=== PATIENT | male | born 1965 | race Caucasian/White ===

== ENCOUNTER 2019-02-20 14:08 | Emergency (ER) | payer BC ==
--- NOTE | 2019-02-20 14:20 | ED Physician Documentation ---
PD HPI URI - Stated complaint Stated Complaint: COUGH/SOA - Chief complaint Chief Complaint: General - History obtained from History obtained from: Patient - History of Present Illness Timing - onset: How many days ago (10-14) Timing duration: Days (10-14) Timing details: Abrupt onset (He was working out in the sun with some strenuous activity about 10 to 14 days ago and noticed onset of fatigue and shortness of breath. He did not have chest pain per se. He is continued with general fatigue and dyspnea on exertion with some cough over the last 10 to 14 days since that time. He states he has not slept well either with some trouble breathing at night and some coughing. He denied chest pain per se. He thought he just needed to rest and relax and so did have a few days off work but [place] Still present Associated symptoms: Productive cough (mildly productive with clear to white sputum), Dyspnea. No: Fever, Chills, Nasal congestion, Sore throat, NVD, Bilateral edema Contributing factors: No: Sick contact, Travel, COPD / asthma Improves by: Rest Worsened by: Activity, Position (lying down at night) Similar symptoms before: Has not had sx before Recently seen: Not recently seen Review of Systems Constitutional: reports: Myalgias, Fatigue. denies: Fever, Chills Nose: denies: Rhinorrhea / runny nose, Congestion Throat: denies: Sore throat Cardiac: reports: Pedal edema (mild). denies: Chest pain / pressure, Palpitations, Calf pain Respiratory: reports: Dyspnea, Cough. denies: Hemoptysis, Wheezing GI: denies: Abdominal Pain, Nausea, Vomiting, Diarrhea Musculoskeletal: denies: Neck pain, Back pain Neurologic: reports: Generalized weakness. denies: Focal weakness, Numbness, Near syncope, Altered mental status, Headache PD PAST MEDICAL HISTORY - Past Medical History Cardiovascular: Hypertension (not on meds, but says readings are usually somewhat high) Respiratory: None Neuro: None Endocrine/Autoimmune: None Musculoskeletal: None - Allergies Allergies/Adverse Reactions: Allergies Allergy/AdvReac Type Severity Reaction Status Date / Time No Known Drug Allergies Allergy Verified 02/20/19 14:14 PD ED PE NORMAL - Vitals Vital signs reviewed: Yes (elevated BP which remains high on recheck) - General General: Alert and oriented X 3, Well developed/nourished - HEENT HEENT: Moist mucous membranes, Pharynx benign - Neck Neck: Supple, no meningeal sign, No adenopathy, No bruit, Other (mild JVD at 45 degrees) - Cardiac Cardiac: RRR, No murmur - Respiratory Respiratory: No respiratory distress. No: Clear bilaterally (fine crackles at bases. Some congested sounds left mid lung. No wheezing. ) - Abdomen Abdomen: Soft, Non tender - Back Back: No CVA TTP - Derm Derm: Normal color, Warm and dry - Extremities Extremities: No tenderness to palpate, Normal ROM s pain, No calf tenderness / cord, Other (1+ mild edema in ankles and lower legs.) - Neuro Neuro: Alert and oriented X 3, No motor deficit, Normal speech Results - Vitals Vitals: Vital Signs - 24 hr 02/20/19 02/20/19 02/20/19 14:11 15:06 17:16 Temperature 36.7 C Heart Rate 100 104 H 102 H Respiratory 19 18 18 Rate Blood Pressure 202/114 H 188/103 H O2 Saturation 96 95 02/20/19 02/20/19 02/20/19 17:35 17:50 17:57 Temperature Heart Rate 86 85 86 Respiratory 16 21 18 Rate Blood Pressure 193/102 H 177/108 H 160/94 H O2 Saturation 96 96 96 02/20/19 02/20/19 02/20/19 18:04 18:12 18:57 Temperature 38.2 C H Heart Rate 86 84 85 Respiratory 22 17 15 Rate Blood Pressure 167/105 H 163/99 H 149/101 H O2 Saturation 93 96 94 02/20/19 19:45 Temperature 38.2 C H Heart Rate 86 Respiratory 27 H Rate Blood Pressure 162/103 H O2 Saturation 93 Oxygen O2 Source Room air - EKG (time done) 15:07 Rate: Rate (enter#) (106) Rhythm: Sinus tachycardia [place]: Normal Intervals: Normal [place] QRS: Normal Ischemia: Normal ST segments. No: ST elevation c/w ischemia, ST depression - Labs Labs: Laboratory Tests 02/20/19 02/20/19 02/20/19 15:05 15:05 15:05 WBC 10.3 RBC 4.52 L Hgb 14.6 Hct 43.5 MCV 96.2 H MCH 32.3 H MCHC 33.6 RDW 13.2 Plt Count 195 MPV 10.7 Neut # (Auto) 8.1 H Lymph # (Auto) 0.7 L Gates # (Auto) 1.4 H Eos # (Auto) 0.1 Baso # (Auto) 0.0 Absolute Nucleated RBC 0.00 Nucleated RBC % 0.0 D-Dimer Sodium 138 Potassium 4.0 Chloride 99 L Carbon Dioxide 28 Anion Gap 11.0 BUN 22 H Creatinine 1.7 H Estimated GFR (MDRD) 43 L Glucose 119 H Calcium 9.5 Magnesium 1.9 Total Bilirubin 0.9 AST 26 ALT 22 Alkaline Phosphatase 75 Troponin I High Sens 298.3 H* B-Natriuretic Peptide Total Protein 7.3 Albumin 3.5 Globulin 3.8 Albumin/Globulin Ratio 0.9 L Lipase 25 TSH 02/20/19 02/20/19 02/20/19 15:05 15:05 15:05 WBC RBC Hgb Hct MCV MCH MCHC RDW Plt Count MPV Neut # (Auto) Lymph # (Auto) Gates # (Auto) Eos # (Auto) Baso # (Auto) Absolute Nucleated RBC Nucleated RBC % D-Dimer 354.3 H Sodium Potassium Chloride Carbon Dioxide Anion Gap BUN Creatinine Estimated GFR (MDRD) Glucose Calcium Magnesium Total Bilirubin AST ALT Alkaline Phosphatase Troponin I High Sens B-Natriuretic Peptide 1271 H Total Protein Albumin Globulin Albumin/Globulin Ratio Lipase TSH 2.17 02/20/19 17:20 WBC RBC Hgb Hct MCV MCH MCHC RDW Plt Count MPV Neut # (Auto) Lymph # (Auto) Gates # (Auto) Eos # (Auto) Baso # (Auto) Absolute Nucleated RBC Nucleated RBC % D-Dimer Sodium Potassium Chloride Carbon Dioxide Anion Gap BUN Creatinine Estimated GFR (MDRD) Glucose Calcium Magnesium Total Bilirubin AST ALT Alkaline Phosphatase Troponin I High Sens 308.4 H* B-Natriuretic Peptide Total Protein Albumin Globulin Albumin/Globulin Ratio Lipase TSH - Rads (name of study) chest xray Radiology: Prelim report reviewed (Vascular congestion consistent with some pulmonary edema), See rad report chest CT-A Radiology: Prelim report reviewed (No pulmonary emboli. There is some groundglass opacification consistent with congestive failure and edema. There is some more confluent infiltrate in the left midlung suggestive of possible pneumonia. No effusions.), See rad report PD MEDICAL DECISION MAKING - ED course Complexity details: reviewed results (He does have an elevated BNP as well as troponin. A 2-hour recheck showed it to be plateaued so not an obvious increase right now. He was hypertensive on presentation that remained that way over an hour or so. He was given nitroglycerin and metoprolol to reduce the pressure and it did come down. He had improvement in his dyspnea with that as well as the albuterol nebulizer treatment.), considered differential (He has some symptoms suggestive of bronchitis or pneumonia. However he has general dyspnea and orthopnea with some congested sounds concerning for new onset CHF. Will obtain labs and x-ray.), d/w patient ED course: He has some respiratory symptoms of bronchitis versus pneumonia. However he has symptoms and findings suggestive of new onset CHF with elevated troponin. He wa s also hypertensive. He may be having some demand ischemia other concern would also be for unstable angina or cardiomyopathy. I feel he does need further emergent work-up with cardiology. I will look at transferring him to another facility for that. Here he is feeling better having had treatment for his hypertension and some diuresing and also nebulizer treatment. His blood pressures improved. His saturations are good. He is breathing more comfortably and feeling generally better. Departure - Departure Disposition: 02 Transfer Acute Care Hosp Clinical Impression: New onset of congestive heart failure, Elevated troponin level Hypertension Qualifiers: Hypertension type: unspecified Qualified Code(s): I10 - Essential (primary) hypertension Dyspnea Qualifiers: Dyspnea type: dyspnea on exertion Qualified Code(s): R06.09 - Other forms of dyspnea Pneumonia Qualifiers: Pneumonia type: due to unspecified organism Laterality: left Lung location: upper lobe of lung Qualified Code(s): J18.1 - Lobar pneumonia, unspecified organism Condition: Stable Record reviewed to determine appropriate education?: Yes
[2019-02-20] MEDS ORDERED: ALBUTEROL NEB 2.5 MG/3 ML INH STA (14:50)
[2019-02-20 15:13] LABS: BASOPHILS % (AUTO) 0.4 %; EOSINOPHILS # (AUTO) 0.1 10^3/uL (0.0-0.7); EOSINOPHILS % (AUTO) 0.6 %; HGB - HEMOGLOBIN 14.6 g/dL (14.0-18.0); LYMPHOCYTES # (AUTO) 0.7 10^3/uL (1.5-3.5); LYMPHOCYTES % (AUTO) 6.7 %; MEAN CORPUSCULAR HEMOGLOBIN 32.3 pg (27.0-31.0); MEAN CORPUSCULAR HGB CONC 33.6 g/dL (32.0-36.0); MEAN CORPUSCULAR VOLUME 96.2 fL (80.0-94.0); MEAN PLATELET VOLUME 10.7 fL (7.4-11.4); MONOCYTES # (AUTO) 1.4 10^3/uL (0.0-1.0); MONOCYTES % (AUTO) 13.7 %; NEUTROPHILS # (AUTO) 8.1 10^3/uL (1.5-6.6); NEUTROPHILS % (AUTO) 78.3 %; PLT - PLATELET COUNT 195 10^3/uL (130-450); RED BLOOD COUNT 4.52 10^6/uL (4.70-6.10); RED CELL DISTRIBUTION WIDTH 13.2 % (12.0-15.0); WHITE BLOOD COUNT 10.3 x10^3/uL (4.8-10.8)
[2019-02-20 15:26] LABS: ALBUMIN 3.5 g/dL (3.2-5.5); ALBUMIN/GLOBULIN RATIO 0.9 (1.0-2.2); BILIRUBIN,TOTAL 0.9 mg/dL (0.2-1.0); CALCIUM 9.5 mg/dL (8.5-10.3); CREATININE 1.7 mg/dL (0.6-1.2); MAGNESIUM 1.9 mg/dL (1.7-2.8); TOTAL PROTEIN 7.3 g/dL (6.7-8.2)
--- NOTE | 2019-02-20 15:44 | XRAY Report ---
Reason: dyspnea/ cough Procedure Date: 02/20/2019 Accession Number: [id number] / [id number] Procedure: XR - Chest 2 View X-Ray CPT Code: 18137 FULL RESULT: EXAM: CHEST RADIOGRAPHY EXAM DATE: 02/20/2019 03:05 PM. CLINICAL HISTORY: Dyspnea/ cough. COMPARISON: None. TECHNIQUE: 2 views. FINDINGS: Lungs/Pleura: There is mild pulmonary vascular congestion. No focal pulmonary consolidation. No pleural effusion or pneumothorax. Lung volumes are normal. Mediastinum: There is borderline enlargement of the cardiac silhouette. Other: No acute osseous abnormality. IMPRESSION: 1. Mild pulmonary vascular congestion. 2. Borderline cardiomegaly. 3. No focal pulmonary consolidation. RADIA
[2019-02-20] MEDS ORDERED: IOVERSOL 320 100 ML VIAL IVP ONE ×2 (16:28→17:53)
[2019-02-20] MEDS ORDERED: FUROSEMIDE 20 MG/2 ML VIAL IVP STA (17:11)
[2019-02-20] MEDS ORDERED: ASPIRIN CHEW 81 MG TABLET PO STA (17:12)
[2019-02-20] MEDS ORDERED: METOPROLOL 5 MG/5 ML VIAL IVP STA ×2 (17:18→17:45)
[2019-02-20] MEDS ORDERED: NITROGLYCERIN SL 0.4 MG TABLET SL STA ×2 (17:18→17:44)
[2019-02-20] MEDS ORDERED: ACETAMINOPHEN 325 MG TABLET PO STA (17:44)
--- NOTE | 2019-02-20 17:46 | CT Report ---
Reason: dyspnea, cough, elevated BNP Procedure Date: 02/20/2019 Accession Number: [id number] / [id number] Procedure: CT - ANGIO CHEST W/WO CPT Code: FULL RESULT: EXAM: CT ANGIOGRAM CHEST EXAM DATE: 02/20/2019 04:56 PM. CLINICAL HISTORY: Dyspnea, cough, elevated BNP. COMPARISON: None. TECHNIQUE: Routine helical imaging was performed through the chest in the pulmonary arterial phase. IV Contrast: OPTI 320 80ML. Reconstructions: Coronal 3-D MIP reconstructions.Sagittal and coronal. In accordance with CT protocol optimization, one or more of the following dose reduction techniques were utilized for this exam: automated exposure control, adjustment of mA and/or KV based on patient size, or use of iterative reconstructive technique. FINDINGS: Pulmonary Arteries: Diagnostic quality: Adequate through the segmental arteries. No evidence for acute or chronic pulmonary emboli. RV/LV is within normal limits. There is no interventricular septal bowing. There is no reflux of contrast material in the IVC. Lungs/Pleura: Mild upper lung predominant septal prominence is seen with hazy bilateral upper lung predominant groundglass opacities. Paramediastinal patchy consolidation is seen at the left apex, anterior right upper lobe, lateral left mid lobe, and left greater than right medial lower lobes. Findings could reflect mild pulmonary edema, and given asymmetry of the foci of consolidation, superimposed pneumonia is a possibility. Small bilateral pleural effusions are seen. No pneumothorax. Mediastinum: Mild cardiomegaly is noted. No pericardial effusion. Mildly enlarged mediastinal and hilar lymph nodes are likely reactive. For example, a right upper hilar lymph node (4/73) measures up to 2.5 cm short axis. Thoracic Aorta: Unremarkable. Upper Abdomen: Exophytic left upper pole 5.4 cm simple appearing renal cyst. Other: None. IMPRESSION: 1. No pulmonary thromboemboli bilaterally. 2. Bilateral septal prominence with upper lung predominant hazy groundglass opacities could reflect mild pulmonary edema. 3. Foci of left greater than right para bronchovascular airspace consolidation may reflect superimposed pneumonia. 4. Small bibasilar pleural effusions noted. 5. Mediastinal and hilar lymphadenopathy is likely reactive. RADIA
[2019-02-20] MEDS ORDERED: cefTRIAXone 1 GM VIAL IVP STA (18:31)
[2019-02-20] MEDS ORDERED: CLOPIDOGREL 75 MG TABLET PO STA (19:46)
[2019-02-20 21:26] VITALS: BP 166/94
== END 2019-02-20 22:02 | disposition short-term general hospital (02) ==
LOC: ED 14:08
DX: I11.0 Hypertensive heart disease with heart failure (principal); I50.9 Heart failure, unspecified; R79.89 Other specified abnormal findings of blood chemistry; J18.1 Lobar pneumonia, unspecified organism
CPT/HCPCS: 36415; 71046; 71275; 83690; 83735; 83880; 84484; 85379; 93005; 94640; 96374; 96375; 99284; 99285; A9270; Q9967; 80053; 84443; 85025